=== PATIENT | male | born 1985 | race Caucasian/White ===

== ENCOUNTER → 2017-10-28 | Outpatient (CLI) | payer BC ==
[~2017-10-28] MED LIST: ACCUPRIL40 MG PO; CLOTRIM ANTIFUNGAL1% TP; COREG25 MG PO; LIDEX0.05% T; LISINOPRIL10 M1 PO; MEDROL DOSEPAK4 MG PO; NORVASC10 MG PO
[2017-10-28 10:09] LABS: SPERM MORPHOLOGY NORMAL FORMS >30 % (NORM >30)
== END | disposition home or self-care (01) ==
LOC: LAB 02:21
PROVIDERS: Urology
DX: N46.9 Male infertility, unspecified (principal)

== ENCOUNTER → 2017-10-29 | Outpatient (CLI) | payer BC | END | disposition home or self-care (01) | LOC: US 03:19 | DX: N28.89 Other specified disorders of kidney and ureter (principal) ==

== ENCOUNTER → 2017-11-19 | Outpatient (CLI) | payer BC ==
[2017-11-19 08:00] LABS: BASO % 0.6 % (0.0-1.0); EOS # 0.2 10*3/uL (0.0-0.4); EOS % 3.1 % (1.0-4.0); HEMATOCRIT 38.5 % (42.0-52.0); HEMOGLOBIN 13.3 g/dl (14.0-18.0); LYMPH # 1.9 10*3/uL (1.3-4.4); MEAN CELL VOLUME 89.7 fl (80.0-94.0); MEAN CORPUSCULAR HGB CONC 34.5 g/dl (33.0-37.0); MEAN PLATELET VOLUME 11.6 fl (9.6-12.3); MONO # 0.5 10*3/uL (0.1-1.0); MONO % 8.2 % (3.0-9.0); NEUT # 3.8 10*3/uL (2.3-7.9); NEUT % 58.6 % (47.0-73.0); PLATELET COUNT AUTOMATED 216 10*3/uL (130-400); RED BLOOD COUNT 4.29 10*6/uL (4.50-5.90); RED CELL DISTRI WIDTH 12.2 % (0-14.5); WHITE BLOOD COUNT 6.4 10*3/uL (4.8-10.8)
[2017-11-19 08:34] LABS: ALBUMIN 4.1 gm/dl (3.1-4.5); ALKALINE PHOSPHATASE 49 U/L (45-117); BUN 13 mg/dl (7-24); CHLORIDE 104 mmol/L (98-107); CREATININE 0.75 mg/dL (0.70-1.30); POTASSIUM 3.7 mmol/L (3.5-5.1); SGOT/AST 21 IU/L (3-35); SGPT/ALT 45 U/L (12-78); SODIUM 138 mmol/L (136-145); T3 UPTAKE 33 % (31-39); THYROXINE (T4) TOTAL 11.5 ug/dl (4.5-12.1); TOTAL PROTEIN 7.5 gm/dL (6.4-8.2)
[2017-11-20 07:03] LABS: FOLLICLE STIMULATING HORMONE 5.4 mIU/mL (1.5-12.4); LUTEINIZING HORMONE 004283 5.9 mIU/mL (1.7-8.6); PROGESTERONE 004317 0.1 ng/mL (0.0-0.5); PROLACTIN 004465 12.1 ng/mL (4.0-15.2)
== END | disposition home or self-care (01) ==
LOC: LAB 11-18 01:54
PROVIDERS: Urology
DX: R53.83 Other fatigue (principal); I10 Essential (primary) hypertension

== ENCOUNTER → 2018-01-15 | Outpatient (CLI) | payer BC ==
[2018-01-15 07:37] LABS: CHOLESTEROL 100 mg/dL (<200); HDL CHOLESTEROL 41 mg/dl (40-60); LDL CHOLESTEROL 44 mg/dL (9-159); TRIGLYCERIDES 77 mg/dl (<150); VLDL CHOLESTEROL 15 mg/dL (6-40)
== END | disposition home or self-care (01) ==
LOC: LAB 03:24
PROVIDERS: Nurse Practitioner Family
DX: Z13.220 Encounter for screening for lipoid disorders (principal); R79.89 Other specified abnormal findings of blood chemistry

== ENCOUNTER → 2018-09-12 | Outpatient (CLI) | payer BC | END | disposition home or self-care (01) | LOC: LAB 04:16 | DX: E29.1 Testicular hypofunction (principal) ==

== ENCOUNTER → 2018-10-04 | Outpatient (CLI) | payer BC | END | disposition home or self-care (01) | LOC: LAB 00:53 | DX: E29.1 Testicular hypofunction (principal) ==

== ENCOUNTER → 2019-04-17 | Outpatient (CLI) | payer BC | END | disposition home or self-care (01) | LOC: LAB 06:53 | DX: E29.1 Testicular hypofunction (principal) ==

== ENCOUNTER → 2019-08-26 | Outpatient (CLI) | payer BC | END | disposition home or self-care (01) | LOC: LAB 04:35 | DX: N52.9 Male erectile dysfunction, unspecified (principal) ==

== ENCOUNTER → 2020-04-02 | Outpatient (CLI) | payer BC ==
[2020-04-02 07:33] LABS: BASO % 0.7 % (0.0-1.0); EOS # 0.2 10*3/uL (0.0-0.4); EOS % 3.7 % (1.0-4.0); HEMATOCRIT 44.7 % (42.0-52.0); LYMPH # 1.8 10*3/uL (1.3-4.4); LYMPH % 30.1 % (27.0-41.0); MEAN CELL VOLUME 89.9 fl (80.0-94.0); MEAN CORPUSCULAR HGB 30.8 pg (27.0-31.0); MEAN CORPUSCULAR HGB CONC 34.2 g/dl (33.0-37.0); MONO # 0.5 10*3/uL (0.1-1.0); MONO % 8.8 % (3.0-9.0); NEUT # 3.4 10*3/uL (2.3-7.9); NEUT % 56.4 % (47.0-73.0); PLATELET COUNT AUTOMATED 243 10*3/uL (130-400); RED BLOOD COUNT 4.97 10*6/uL (4.50-5.90); RED CELL DISTRI WIDTH 12.1 % (0-14.5); WHITE BLOOD COUNT 5.9 10*3/uL (4.8-10.8)
[2020-04-02 08:01] LABS: ALBUMIN 4.5 gm/dl (3.1-4.5); BILIRUBIN, DIRECT 0.2 mg/dL (0.0-0.2); TOTAL PROTEIN 8.3 gm/dL (6.4-8.2)
[2020-04-05 08:11] LABS: TESTOSTERONE FREE, (DIRECT) 6.7 pg/mL (8.7-25.1)
== END | disposition home or self-care (01) ==
LOC: LAB 07:00
PROVIDERS: Nurse Practitioner Gerontology
DX: N52.9 Male erectile dysfunction, unspecified (principal)

== ENCOUNTER → 2020-07-02 | Outpatient (CLI) | payer BC ==
[2020-07-02 05:04] LABS: ALBUMIN 4.4 gm/dl (3.1-4.5); ALKALINE PHOSPHATASE 48 U/L (45-117); BUN 12 mg/dl (7-24); CHLORIDE 104 mmol/L (98-107); CHOLESTEROL 127 mg/dL (<200); CREATININE 0.84 mg/dL (0.70-1.30); HDL CHOLESTEROL 41 mg/dl (40-60); LDL CHOLESTEROL 55 mg/dL (9-159); POTASSIUM 3.4 mmol/L (3.5-5.1); SGOT/AST 26 IU/L (3-35); SGPT/ALT 61 U/L (12-78); SODIUM 137 mmol/L (136-145); TRIGLYCERIDES 156 mg/dl (<150); VLDL CHOLESTEROL 31 mg/dL (6-40)
== END | disposition home or self-care (01) ==
LOC: LAB 00:25
PROVIDERS: ATTEND Physician Assistant
DX: M25.531 Pain in right wrist (principal); I10 Essential (primary) hypertension; G47.33 Obstructive sleep apnea (adult) (pediatric); R79.89 Other specified abnormal findings of blood chemistry

== ENCOUNTER → 2021-01-15 | Outpatient (CLI) | payer BC ==
[2021-01-15 06:25] LABS: HEMATOCRIT 46.7 % (42.0-52.0); MEAN CELL VOLUME 89.1 fl (80.0-94.0); MEAN CORPUSCULAR HGB 30.9 pg (27.0-31.0); MEAN CORPUSCULAR HGB CONC 34.7 g/dl (33.0-37.0); MEAN PLATELET VOLUME 11.7 fl (9.6-12.3); RED BLOOD COUNT 5.24 10*6/uL (4.50-5.90); RED CELL DISTRI WIDTH 12.2 % (0-14.5); WHITE BLOOD COUNT 6.4 10*3/uL (4.8-10.8)
[2021-01-15 06:48] LABS: ALBUMIN 4.3 gm/dl (3.1-4.5); ALKALINE PHOSPHATASE 50 U/L (45-117); BUN 11 mg/dl (7-24); CHLORIDE 106 mmol/L (98-107); CHOLESTEROL 129 mg/dL (<200); CREATININE 0.86 mg/dL (0.70-1.30); HDL CHOLESTEROL 44 mg/dl (40-60); LDL CHOLESTEROL 60 mg/dL (9-159); POTASSIUM 3.5 mmol/L (3.5-5.1); SGOT/AST 32 IU/L (3-35); SGPT/ALT 67 U/L (12-78); SODIUM 140 mmol/L (136-145); TOTAL PROTEIN 7.8 gm/dL (6.4-8.2); TRIGLYCERIDES 124 mg/dl (<150); VLDL CHOLESTEROL 25 mg/dL (6-40)
== END | disposition home or self-care (01) ==
LOC: LAB 00:41
PROVIDERS: ATTEND Physician Assistant
DX: I10 Essential (primary) hypertension (principal); G47.33 Obstructive sleep apnea (adult) (pediatric); R79.89 Other specified abnormal findings of blood chemistry; E66.9 Obesity, unspecified

== ENCOUNTER → 2021-07-31 | Outpatient (CLI) | payer BC ==
[2021-07-31 07:24] LABS: BASO # 0.1 10*3/uL (0.0-0.1); BASO % 0.6 % (0.0-1.0); EOS # 0.3 10*3/uL (0.0-0.4); EOS % 3.2 % (1.0-4.0); HEMATOCRIT 46.6 % (42.0-52.0); LYMPH # 2.2 10*3/uL (1.3-4.4); LYMPH % 27.3 % (27.0-41.0); MEAN CELL VOLUME 87.9 fl (80.0-94.0); MEAN CORPUSCULAR HGB 30.8 pg (27.0-31.0); MEAN PLATELET VOLUME 11.4 fl (9.6-12.3); MONO # 0.7 10*3/uL (0.1-1.0); MONO % 8.4 % (3.0-9.0); NEUT # 4.8 10*3/uL (2.3-7.9); NEUT % 59.9 % (47.0-73.0); PLATELET COUNT AUTOMATED 232 10*3/uL (130-400); RED CELL DISTRI WIDTH 12.3 % (0-14.5)
[2021-07-31 07:50] LABS: ALBUMIN 4.1 gm/dl (3.1-4.5); TOTAL PROTEIN 7.7 gm/dL (6.4-8.2)
[2021-08-02 16:06] LABS: TESTOSTERONE FREE, (DIRECT) 13.9 pg/mL (8.7-25.1)
== END | disposition home or self-care (01) ==
LOC: LAB 00:20
PROVIDERS: ATTEND Nurse Practitioner Gerontology
DX: N52.9 Male erectile dysfunction, unspecified (principal)

== ENCOUNTER → 2022-12-15 | Outpatient (CLI) | payer BC ==
[2022-12-15 10:01] LABS: BASO % 0.7 % (0.0-1.0); EOS # 0.2 10*3/uL (0.0-0.4); EOS % 2.8 % (1.0-4.0); HEMATOCRIT 40.4 % (42.0-52.0); LYMPH # 1.8 10*3/uL (1.3-4.4); LYMPH % 29.3 % (27.0-41.0); MEAN CELL VOLUME 88.8 fl (80.0-94.0); MEAN CORPUSCULAR HGB 31.2 pg (27.0-31.0); MEAN CORPUSCULAR HGB CONC 35.1 g/dl (33.0-37.0); MEAN PLATELET VOLUME 11.6 fl (9.6-12.3); MONO # 0.5 10*3/uL (0.1-1.0); MONO % 7.9 % (3.0-9.0); NEUT # 3.5 10*3/uL (2.3-7.9); PLATELET COUNT AUTOMATED 228 10*3/uL (130-400); RED BLOOD COUNT 4.55 10*6/uL (4.50-5.90); RED CELL DISTRI WIDTH 12.3 % (0-14.5)
[2022-12-15 10:32] LABS: ALKALINE PHOSPHATASE 46 U/L (46-116); BUN 10 mg/dl (9-23); CHLORIDE 103 mmol/L (98-107); POTASSIUM 3.3 mmol/L (3.4-5.1); SGPT/ALT 67 U/L (10-49); THYROID STIM HORMONE (HS) 1.744 uIU/ml (0.550-4.780); TOTAL PROTEIN 7.6 gm/dL (6.0-8.0)
[2022-12-16 05:06] LABS: ALPHA-1-ANTITRYPSIN, SERUM 115 mg/dL (95-164); HEPATITIS B SURFACE AB Non Reactive (.); HEPATITIS B SURFACE AG Negative (Negative)
[2022-12-16 13:06] LABS: ANTI-SMOOTH MUSCLE ANTIBODY 8 Units (0-19)
[2022-12-16 14:08] LABS: t-TRANSGLUTAMINASE (tTG) IGA <2 U/mL (0-3); t-TRANSGLUTAMINASE (tTG) IgG <2 U/mL (0-5)
[2022-12-16 15:07] LABS: ENDOMYSIAL ANTIBODY IgA Negative (Negative)
== END | disposition home or self-care (01) ==
LOC: LAB 07:17
PROVIDERS: Nurse Practitioner Family; ATTEND Internal Medicine Endocrinology, Diabetes & Metabolism
DX: Z11.59 Encounter for screening for other viral diseases (principal); N40.1 Benign prostatic hyperplasia with lower urinary tract symptoms; E29.1 Testicular hypofunction; K76.0 Fatty (change of) liver, not elsewhere classified; R74.8 Abnormal levels of other serum enzymes; R53.83 Other fatigue

== ENCOUNTER → 2023-03-07 | Outpatient (CLI) | payer BC ==
[2023-03-07 08:41] LABS: TOTAL PROTEIN 7.7 gm/dL (6.0-8.0)
== END | disposition home or self-care (01) ==
LOC: LAB 07:17
PROVIDERS: ATTEND Urology
DX: E29.1 Testicular hypofunction (principal); N40.1 Benign prostatic hyperplasia with lower urinary tract symptoms

== ENCOUNTER → 2023-07-19 | Outpatient (CLI) | payer BC ==
[2023-07-19 07:42] LABS: BASO % 0.6 % (0.0-1.0); EOS # 0.2 10*3/uL (0.0-0.4); EOS % 2.4 % (1.0-4.0); HEMATOCRIT 45.1 % (42.0-52.0); LYMPH # 1.9 10*3/uL (1.3-4.4); LYMPH % 29.1 % (27.0-41.0); MEAN CORPUSCULAR HGB 31.6 pg (27.0-31.0); MEAN CORPUSCULAR HGB CONC 35.5 g/dl (33.0-37.0); MEAN PLATELET VOLUME 11.6 fl (9.6-12.3); MONO # 0.6 10*3/uL (0.1-1.0); MONO % 8.7 % (3.0-9.0); NEUT # 3.9 10*3/uL (2.3-7.9); NEUT % 58.9 % (47.0-73.0); PLATELET COUNT AUTOMATED 231 10*3/uL (130-400); RED BLOOD COUNT 5.07 10*6/uL (4.50-5.90); RED CELL DISTRI WIDTH 12.5 % (0-14.5); WHITE BLOOD COUNT 6.7 10*3/uL (4.8-10.8)
[2023-07-19 08:16] LABS: ALKALINE PHOSPHATASE 43 U/L (46-116); BUN 7 mg/dl (9-23); CHLORIDE 104 mmol/L (98-107); POTASSIUM 3.6 mmol/L (3.4-5.1); SGPT/ALT 44 U/L (5-49); TOTAL PROTEIN 7.5 gm/dL (6.0-8.0)
[2023-07-19 11:51] LABS: TESTOSTERONE, TOTAL 665 ng/dL (113-882)
== END | disposition home or self-care (01) ==
LOC: LAB 07:01
PROVIDERS: ATTEND Nurse Practitioner Family
DX: E29.1 Testicular hypofunction (principal)

== ENCOUNTER → 2024-03-07 | Outpatient (CLI) | payer BC ==
[2024-03-07 07:44] LABS: BASO # 0.1 10*3/uL (0.0-0.1); BASO % 0.8 % (0.0-1.0); EOS # 0.2 10*3/uL (0.0-0.4); EOS % 2.7 % (1.0-4.0); LYMPH # 1.8 10*3/uL (1.3-4.4); LYMPH % 29.2 % (27.0-41.0); MEAN CELL VOLUME 91.3 fl (80.0-94.0); MEAN CORPUSCULAR HGB 31.3 pg (27.0-31.0); MEAN CORPUSCULAR HGB CONC 34.3 g/dl (33.0-37.0); MEAN PLATELET VOLUME 10.7 fl (9.6-12.3); MONO # 0.5 10*3/uL (0.1-1.0); MONO % 8.8 % (3.0-9.0); NEUT # 3.5 10*3/uL (2.3-7.9); PLATELET COUNT AUTOMATED 203 10*3/uL (130-400); RED BLOOD COUNT 4.82 10*6/uL (4.50-5.90); RED CELL DISTRI WIDTH 12.3 % (0-14.5)
[2024-03-07 08:11] LABS: ALKALINE PHOSPHATASE 45 U/L (46-116); BUN 10 mg/dl (9-23); CHLORIDE 104 mmol/L (98-107); POTASSIUM 3.7 mmol/L (3.4-5.1); SGPT/ALT 34 U/L (5-49); TOTAL PROTEIN 7.4 gm/dL (6.0-8.0)
== END | disposition home or self-care (01) ==
LOC: LAB 01:35
PROVIDERS: ATTEND Nurse Practitioner Family
DX: E29.1 Testicular hypofunction (principal)

== ENCOUNTER → 2024-09-10 | Outpatient (CLI) | payer BC ==
[2024-09-10 07:20] LABS: BASO % 0.4 % (0.0-1.0); EOS # 0.2 10*3/uL (0.0-0.4); EOS % 2.5 % (1.0-4.0); HEMATOCRIT 44.7 % (42.0-52.0); MEAN CELL VOLUME 90.3 fl (80.0-94.0); MEAN CORPUSCULAR HGB 31.3 pg (27.0-31.0); MEAN CORPUSCULAR HGB CONC 34.7 g/dl (33.0-37.0); MONO # 0.6 10*3/uL (0.1-1.0); MONO % 8.5 % (3.0-9.0); NEUT # 4.5 10*3/uL (2.3-7.9); NEUT % 59.3 % (47.0-73.0); PLATELET COUNT AUTOMATED 239 10*3/uL (130-400); RED BLOOD COUNT 4.95 10*6/uL (4.50-5.90); WHITE BLOOD COUNT 7.6 10*3/uL (4.8-10.8)
[2024-09-10 08:12] LABS: TOTAL PROTEIN 7.9 gm/dL (6.0-8.0)
== END | disposition home or self-care (01) ==
LOC: LAB 07:04
PROVIDERS: ATTEND Nurse Practitioner Family
DX: E29.1 Testicular hypofunction (principal)

== ENCOUNTER → 2025-03-07 | Outpatient (CLI) | payer BC ==
[2025-03-07 08:44] LABS: TOTAL PROTEIN 6.8 gm/dL (6.0-8.0)
== END | disposition home or self-care (01) ==
LOC: LAB 07:23
PROVIDERS: ATTEND Urology
DX: E29.1 Testicular hypofunction (principal); N40.1 Benign prostatic hyperplasia with lower urinary tract symptoms

== ENCOUNTER 2025-06-09 17:10 | Emergency (ER) | payer BC ==
[~2025-06-09] VITALS: Ht 180.3 cm; Wt 149.7 kg
[2025-06-09] MEDS ORDERED: CEPHALEXIN 500 MG CAP PO ONE (18:00)
[2025-06-09] MEDS ORDERED: Acetaminophen/Hydrocodone ES 7.5/325 tablet PO ONE (18:10)
[2025-06-09 18:24] LABS: BASO # 0.0 10*3/uL (0.0-0.1); BASO % 0.5 % (0.0-1.0); EOS # 0.2 10*3/uL (0.0-0.4); EOS % 2.9 % (1.0-4.0); MEAN CELL VOLUME 91.8 fl (80.0-94.0); MEAN CORPUSCULAR HGB 31.5 pg (27.0-31.0); MEAN PLATELET VOLUME 10.6 fl (9.6-12.3); MONO # 0.7 10*3/uL (0.1-1.0); MONO % 9.8 % (3.0-9.0); NEUT # 5.1 10*3/uL (2.3-7.9); NEUT % 68.3 % (47.0-73.0); NUCLEATED RED BLOOD CELL 0.0 % (0.0-0.0); NUCLEATED RED BLOOD CELL 0.0 10*3/uL (0.0-0.0); PLATELET COUNT AUTOMATED 213 10*3/uL (130-400); RED CELL DISTRI WIDTH 12.7 % (0-14.5)
[2025-06-09 18:52] LABS: BUN 9 mg/dl (9-23)
[2025-06-09] MEDS ORDERED: CEPHALEXIN500 M1 PO (19:32)
[2025-06-09] MEDS ORDERED: Bacitracin Zinc 14 GM TUBE T ONE (19:35)
== END 2025-06-09 19:44 | disposition home or self-care (01) ==
LOC: ED 17:10
DX: S80.811A Abrasion, right lower leg, initial encounter (principal); L08.9 Local infection of the skin and subcutaneous tissue, unspecified; M25.512 Pain in left shoulder; R10.9 Unspecified abdominal pain; Z79.899 Other long term (current) drug therapy; V89.2XXA Person injured in unspecified motor-vehicle accident, traffic, initial encounter; Y93.89 Activity, other specified; Y92.89 Other specified places as the place of occurrence of the external cause; Y99.8 Other external cause status

== ENCOUNTER 2025-06-14 13:08 | Inpatient (IN) | payer BC ==
[~2025-06-14] VITALS: Ht 180.3 cm; Wt 159.7 kg
[~2025-06-14 13:08] MED LIST changes: +CEPHALEXIN500 M1 PO
[2025-06-14 13:25] VITALS: BP 153/76
[2025-06-14] MEDS ORDERED: IOHEXOL 300 MG/ML 100 ML VIAL IV ONE (13:45)
[2025-06-14] MEDS ORDERED: IOHEXOL 300 MG/ML 100 ML VIAL ONE (14:06)
[2025-06-14 14:13] LABS: BASO # 0.0 10*3/uL (0.0-0.1); BASO % 0.3 % (0.0-1.0); EOS # 0.2 10*3/uL (0.0-0.4); EOS % 2.2 % (1.0-4.0); MEAN CELL VOLUME 92.8 fl (80.0-94.0); MEAN CORPUSCULAR HGB 30.9 pg (27.0-31.0); MEAN PLATELET VOLUME 10.2 fl (9.6-12.3); MONO # 0.7 10*3/uL (0.1-1.0); MONO % 9.4 % (3.0-9.0); NEUT # 5.8 10*3/uL (2.3-7.9); NEUT % 74.3 % (47.0-73.0); NUCLEATED RED BLOOD CELL 0.0 % (0.0-0.0); NUCLEATED RED BLOOD CELL 0.0 10*3/uL (0.0-0.0); PLATELET COUNT AUTOMATED 232 10*3/uL (130-400); RED CELL DISTRI WIDTH 12.4 % (0-14.5)
[2025-06-14 14:30] LABS: BUN 11 mg/dl (9-23)
[2025-06-14] MEDS ORDERED: SEPTDS PO (15:21)
[2025-06-14 16:13] LABS: ACT PARTIAL THROMBO TIME 28.6 SECONDS (20.0-32.1)
[2025-06-14] MEDS ORDERED: PROZAC20 MG PO (16:15)
[2025-06-14] MEDS ORDERED: BISACODYL 10 MG SUPP R PRN (16:25)
[2025-06-14] MEDS ORDERED: ACETAMINOPHEN 325 MG TAB PO PRN (16:25)
[2025-06-14] MEDS ORDERED: Acetaminophen/Hydrocodone 5 MG/325 MG TABLET PO PRN (16:25)
[2025-06-14] MEDS ORDERED: Ondansetron Hydrochloride 4 MG/2 ML VIAL IV PRN (16:25)
[2025-06-14] MEDS ORDERED: ACETAMINOPHEN 650 MG SUPP R PRN (16:25)
[2025-06-14] MEDS ORDERED: TEMAZEPAM 15 MG CAP PO PRN (16:25)
[2025-06-14] MEDS ORDERED: BISACODYL 5 MG TAB PO PRN (16:25)
[2025-06-14 17:27] VITALS: BP 150/70
[2025-06-14] MEDS ORDERED: APIXABAN 5 MG TAB PO SCH (18:00)
[2025-06-14 20:35] VITALS: BP 150/58
[2025-06-14] MEDS ORDERED: LISINOPRIL 10 MG TAB PO SCH (22:00)
[2025-06-15] VITALS: BP 127/58
[2025-06-15 06:29] LABS: BASO # 0.1 10*3/uL (0.0-0.1); BASO % 0.7 % (0.0-1.0); EOS # 0.2 10*3/uL (0.0-0.4); EOS % 2.9 % (1.0-4.0); MEAN CELL VOLUME 93.2 fl (80.0-94.0); MEAN CORPUSCULAR HGB 32.1 pg (27.0-31.0); MEAN PLATELET VOLUME 10.4 fl (9.6-12.3); MONO # 0.9 10*3/uL (0.1-1.0); MONO % 12.7 % (3.0-9.0); NEUT # 4.9 10*3/uL (2.3-7.9); NEUT % 66.8 % (47.0-73.0); NUCLEATED RED BLOOD CELL 0.0 % (0.0-0.0); NUCLEATED RED BLOOD CELL 0.0 10*3/uL (0.0-0.0); PLATELET COUNT AUTOMATED 224 10*3/uL (130-400); RED CELL DISTRI WIDTH 12.5 % (0-14.5)
[2025-06-15 06:52] LABS: BUN 13 mg/dl (9-23); SGPT/ALT 20 U/L (5-49)
[2025-06-15 08:00] VITALS: BP 139/64
[2025-06-15] MEDS ORDERED: LISINOPRIL 10 MG TAB PO SCH (10:00)
[2025-06-15] MEDS ORDERED: ELIQUIS5 M1 PO ×2 (11:51)
[2025-06-15 12:00] VITALS: BP 138/71
== END 2025-06-15 12:30 | disposition home or self-care (01) | DRG 300 ==
LOC: ED 13:08 → EDHOLD 16:01 → 5E 18:50
PROVIDERS: Emergency Medicine; ADMIT Internal Medicine; ATTEND Internal Medicine
DX: I82.441 Acute embolism and thrombosis of right tibial vein (principal); L03.115 Cellulitis of right lower limb; F32.A Depression, unspecified; I10 Essential (primary) hypertension; D64.9 Anemia, unspecified; S80.11XA Contusion of right lower leg, initial encounter; Z79.899 Other long term (current) drug therapy; Z79.01 Long term (current) use of anticoagulants; Z82.49 Family history of ischemic heart disease and other diseases of the circulatory system; Z80.8 Family history of malignant neoplasm of other organs or systems; X58.XXXA Exposure to other specified factors, initial encounter; Y93.89 Activity, other specified; Y92.89 Other specified places as the place of occurrence of the external cause; Y99.8 Other external cause status